=== PATIENT | female | born 1990 | race African-American/Black ===

== ENCOUNTER 2025-04-09 10:35 | Outpatient (REF) | payer MEDICAID, SELFPAY ==
--- OUTSIDE RECORDS SUMMARY | 2025-04-09 11:31 | XMS_ITS | Clinical Summary ---
Author Organization [employer] Address [address] [place] [address] Care Team Providers Care Features Editor Name Role Phone Emilia Hickman MD Primary Care Provider [phone] Allergies No known active allergies Medications levonorgestrel-e thinyl estradiol (Aviane, Alesse, Lessina) 0.1-20 MG-MCG tabletIndication s:Family planning Take 1 tablet by mouth Once per day. 90 tablet 3 03/28/2025 Active Hospital, Clinic, or Other Facility Administered Medication Ordered Dose Route Frequency Start Date End Date Status etonogestrel-eluting 68 mg contraceptive implant 1 eachIndications:Nexpl anon insertion 1 each [place] Once PRN Procedure 04/09/2025 04/09/2025 Ended Active Problems No known active problems Encounters Date Type Department Care Team Description 04/09/2025 9:30 AM EDT Procedure Visit [facility] [address] [place] [id number] Marcella Mahoney CNM Nexplanon insertion (Primary Dx); Screening examination for venereal disease 04/09/2025 Travel 04/05/2025 Telephone [facility] [address] [place] [phone] Emilia Hickman MD chartprep 03/28/2025 2:40 PM EDT Office Visit [facility] [address] [place] [phone] Emilia Hickman MD Encounter for medical examination to establish care (Primary Dx); Routine screening for STI (sexually transmitted infection); Family planning; Elevated blood sugar; Screening cholesterol level; Other fatigue; Dietary counseling; Exercise counseling 03/28/2025 Travel from Last 3 Months Family History Medical History Relation Name Comments Diabetes Neg Hx Hypertension Neg Hx Social History Tobacco Use Types Packs/Day Years Used Date Smoking Tobacco: Never Smokeless Tobacco: Never Tobacco Cessation:Counseling Given: Not Answered Alcohol Use Standard Drinks/Week Comments Never 0 (1 standard drink = 0.6 oz pur e alcohol) Depression Answer Date Recorded Patient Health Questionnaire-9 Score 0 04/09/2025 Patient Health Questionnaire-9 Score 0 04/09/2025 Last PHQ-9: Questionnaire Data Not on file 0 04/09/2025 Housing Stability Answer Date Recorded What is your housing situation today? I have phillip holder 04/09/[address] you li ve. Do you have problems with any of the following? Not on file 04/09/2025 Food Insecurity Answer Date Recorded Within the past 12 months, y ou worried that your food would run out before you got money to buy more: Never True 04/09/2025 Within the past 12 months,th e food you bought just didn't last and you didn't have enough money to get more: Never True 04/2025 Transportation Answer Date Recorded In the past 12 months, has l ack of transportation kept you from medical appts, meetings, work or from getting things needed for daily living? No 04/09/2025 Utilities Answer Date Recorded In the past 12 months, has t he electric, gas, oil or water company threatened to shut off services in your home? No 04/09/2025 Depression Answer Date Recorded Patient Health Questionnaire-2 Score 0 04/09/2025 Internet Access Answer Date Recorded Internet Access Q1 Yes 04/09/2025 Internet Access Q2 Not on file 04/09/2025 Comments Unknown Intention Date Recorded No desire to become (finding) 0 04/09/2025 Sex and Gender Information Value Date Recorded Sex Assigned at Female 03/28/2025 2:03 PM EDT Legal Sex Female 1:59 PM EDT Gender Identity Female 03/28/2025 2:03 PM EDT Sexual Orientation Straight 03/28/2025 2: 03 PM EDT Last Filed Vital Signs Vital Sign Reading Time Taken Comments Blood Pressure 100/62 04/09/2025 9:34 AM EDT Pulse 70 04/09/2025 9:34 AM EDT Temperature 36.4 C (97.5 F) 04/09/2025 9:34 AM EDT Respiratory Rate 18 04/09/2025 9:34 AM EDT Oxygen Saturation 98% 03/28/2025 2:33 PM EDT Inhaled Oxygen Concentration - - Weight 96.3 kg (212 lb 3.2 oz) 04/09/2025 9:34 A M EDT Height 168.8 cm (5' 6.44 ) 04/09/2025 9:34 AM ED T Body Mass Index 33.8 04/09/2025 9:34 AM EDT Plan of Treatment Upcoming Encounters Date Type Department Care Team (Late st Contact Info) Description 05/01/2025 3:30 PM EDT Procedure Visit [facility] MED[facility] [address] [place] [address], [place] [phone] Marcella Mahoney CNM [address] [place] [address] 05/02/2025 9:00 AM EDT Office Visit [facility] MED[facility]INE [address] [place], [place] [phone] Emilia Hickman MD [address] [place], [place] [phone] Health Maintenance Due Date Last Done Comments HIV Screening 1988 SDOH Screening 1988 HPV Vaccines (1 - 3-dose series) 2003 Hepatitis C Screening 2006 DTaP/Tdap/Td Vaccines (1 - Tdap) 2007 Hepatitis B Vaccines (1 of 3 - 19+ 3-dose series) 2007 Pap Smear 2009 Cervical Cancer Screening 2018 HPV/Cotest 2018 COVID-19 Vaccine (1 - 2023-2 5 season) 2024 Influenza Vaccine (#1) 2025 Alcohol/Substance Use Screening 04/09/2026 04/09/2025 Depression Screening 04/09/2026 04/09/2025, 04/09/2025 Disability Screening 04/09/2026 04/09/2025 Family Planning (PISQ) 04/09/2026 04/09/2025 Tobacco Screening 04/09/2026 04/09/2025 Zoster Vaccines (1 of 2) 2038 RSV Patients and Patients Aged 60 years or older (1 - 1-dose 75+ series) 2063 HIB Vaccines Aged Out No longer eligi ble based on patient's age to complete this topic Hepatitis A Vaccines Aged Out No long er eligible based on patient's age to complete this topic IPV Vaccines Aged Out No longer eligi ble based on patient's age to complete this topic Meningococcal B Vaccine Aged Out No l onger eligible based on patient's age to complete this topic Meningococcal Vaccine Aged Out No jaden leigha eligible based on patient's age to complete this topic Pneumococcal Vaccine: Pediatrics (0 to 5 Years) and At-Risk Patients (6 to 49) Years Aged Out No longer eligible b ased on patient's age to complete this topic RSV under 20 months Aged Out No longe r eligible based on patient's age to complete this topic Rotavirus Vaccines Aged Out No longer eligible based on patient's age to complete this topic Procedures Procedure Name Priority Date/Time Associated Diagnosis Comments OR INSERTION DRUG DELIVERY IMPLANT Routine 04/09/2025 9:50 AM EDT Nexplanon insertion POCT , URINE Routine 04/09/2025 9:43 AM EDT Nexplanon insertion from Last 3 Months Results * OR INSERTION DRUG DELIVERY IMPLANT (04/09/2025 9:50 AM EDT) Marcella Galeas CNM - 04/09/2025 9:50 AM EDT Marcella Mahoney CNM 04/09/2025 10:18 AM Insertion/Removal of Contraceptive Capsule Date/Time: 04/09/2025 9:50 AM Performed by: Marcella Mahoney CNM Authorized by: Marcella Mahoney CNM Confirmed correct patient, procedure, site, and patient consented: Yes Participating Staff: Marcella Mahoney Consent: Consent obtained: Verbal and written Consent given by: Patient Procedural risks and benefits discussed: Yes Patient questions answered: yes Patient agrees, verbalizes understanding, and wants to proceed: yes Educational handouts given: yes Instructions and paperwork completed: yes Indication: Indication: insertion of non-biodegradable drug delivery implant Pre-procedure: Pre-procedure timeout performed: yes Prepped with: povidone-iodine Local anesthetic: 2ml 2% lidocaine. Procedure: Procedure: Insertion Left/right: Left Preloaded contraceptive capsule trocar was placed subdermally: yes Visualization of implant was obtained: yes Contraceptive capsule was inserted and trocar removed: yes Visualization of notch in stylet and palpation of device: yes Palpation confirms placement by provider and patient: yes Site was closed with steri-strips and pressure bandage applied: yes OSM: 1 each etonogestrel-eluting 68 mg Marcella Mahoney CNM IN CLINIC/BEDSIDE ORDERAB LES Final Result * POCT Urine (04/09/2025 9:43 AM EDT) Preg Test, Ur Negative Negative, Indeterminate, None Detected, Invalid, Specimen unsatisfactory for evaluation, Weakly Positive, 2+ QC Media Lot # [id number] Lot# Expiration Date [id number] Urine 04/09/2025 9:43 AM EDT Marcella Mahoney CNM POINT OF CARE TEST ENTER/ EDIT ORDERABLES Final Result from Last 3 Months Insurance [facility] C3 Care Teams Features Editor Relationship Specialty Start Date End Date Howard, MD Emilia [address] [place] [phone] PCP - General Family Medicine 03/28/25
[2025-04-09 11:33] LABS: Hematocrit 38.6 % (37.0-47.0); Hemoglobin 12.1 g/dl (12.0-16.0); Imm Gran Abs Auto 0.01 X10*3/uL (0.00-0.03); Imm Gran Pct Auto 0.1 % (0.0-0.4); Lymphocytes Absolute Auto 2.2 X10*3/uL (1.2-4.9); MANUAL DIFF FLAG SCAN; Mean Corpuscular HGB Conc 31.3 g/dl (31.0-35.0); Mean Corpuscular Hemoglobin 23.7 pg (27.0-33.0); Mean Corpuscular Volume 75.5 fL (80.0-98.0); NRBC Abs Auto 0.000 X10*3/uL (0.0-0.012); NRBC Pct Auto 0.0 /100WBC (0.0-0.2); PLT CLUMP 1; Red Blood Count 5.11 X10*6/uL (4.20-5.50); SCAN SMEAR FLAG 1
[2025-04-09 11:36] LABS: Hemoglobin A1C 123.5462 umol/L; Total Hemoglobin (HGBA1C) 3180.6123 umol/L
[2025-04-09 11:38] LABS: White Blood Count 6.8 X10*3/uL (4.8-10.8)
[2025-04-09 11:51] LABS: Platelet Count 209 X10*3/uL (160-400)
[2025-04-09 12:53] LABS: CT PCR Urine NOT DETECTED (Not Detect.); NG PCR Urine NOT DETECTED (Not Detect.)
[2025-04-09 13:44] LABS: Alanine Aminotransferase 19 U/L (0-31); Albumin Level 4.4 g/dL (3.5-5.0); Alkaline Phosphatase 78 U/L (39-117); Anion Gap 12 (12-20); Aspartate Amino Transferase 21 U/L (5-31); Blood Urea Nitrogen 12 mg/dL (9-16); Calcium 10.0 mg/dL (8.4-10.2); Carbon Dioxide 25 mmol/L (22-29); Chloride 107 mmol/L (96-108); Cholesterol 202 mg/dL (<200); Estimated Glomerular Filt Rate > 60; HDL Cholesterol 43 mg/dL (>40); Potassium 4.4 mmol/L (3.3-5.1); Sodium 140 mmol/L (135-145); Total Protein 7.7 g/dL (6.5-8.0); Triglycerides 69 mg/dL (<150)
[2025-04-10 08:10] LABS: HIV Num 1 0.13 S/CO (0.00-0.99)
[2025-04-10 08:39] LABS: Syphilis Screen Nonreactive (Nonreactive)
[2025-04-10 08:43] LABS: HBS Num1 0.93 mIU/mL (0-7.99); HBc Num1 0.07 S/CO (0.00-0.79); HBsAGNum1 0.36 S/CO (0.00-0.99); Hepatitis B Surface Antigen Negative (Negative); ~HepC Num1 0.13 S/CO (0.00-0.79); ~Hepatitis B Surface Antibody NONREACTIVE (Nonreactive); ~Hepatitis C Antibody Nonreactive (Nonreactive)
== END 2025-04-09 10:36 | disposition home or self-care (01) ==
LOC: HO.HHCL 10:35
PROVIDERS: Advanced Practice Midwife; PCP Family Medicine; Visit Provider Family Medicine
DX: R53.83 Other fatigue (principal); R73.9 Hyperglycemia, unspecified; Z13.220 Encounter for screening for lipoid disorders; Z11.3 Encounter for screening for infections with a predominantly sexual mode of transmission
CPT/HCPCS: 36415; 80048; 80061; 80076; 83036; 84443; 85025; 86704; 86706; 86780; 86803; 87340; 87389; 87491; 87591

== ENCOUNTER 2025-05-01 18:24 | Outpatient (REF) | payer MEDICAID, SELFPAY | END 2025-05-01 18:25 | disposition home or self-care (01) | LOC: HO.HHCLNP 18:24 | PROVIDERS: Visit Provider Advanced Practice Midwife | DX: Z12.4 Encounter for screening for malignant neoplasm of cervix (principal); Z11.51 Encounter for screening for human papillomavirus (HPV) | CPT/HCPCS: 87626; 88175 ==

== ENCOUNTER 2025-06-22 11:31 | Outpatient (REF) | payer MEDICAID, SELFPAY ==
--- OUTSIDE RECORDS SUMMARY | 2025-06-22 12:07 | XMS_ITS | Clinical Summary ---
Author Organization [employer] Address [address] [place] [address] Care Team Providers Care Community Health Nurse Name Role Phone Emilia Hickman MD Primary Care Provider [phone] Allergies No known active allergies Medications levonorgestrel -ethinyl estradiol (Aviane, Alesse, Lessina) 0.1-20 MG-MCG tabletIndicati ons:Family planning Take 1 tablet by mouth Once per day. 90 tablet 3 025 2025 Active Cabotegravir ER 600 MG/3ML Suspension Extended ReleaseIndicat ions:Encounter for HIV pre-exposure prophylaxis 600mg IM Ventrogluteal monthly x 2 moths then every two months going forward 3 mL 025 Active Cabotegravir ER 600 MG/3ML Suspension Extended ReleaseIndicat ions:Encounter for HIV pre-exposure prophylaxis 600mg IM Ventrogluteal monthly x 2 moths then every two months going forward 3 mL 025 2024 Discontinued(R eorder (will not trigger notification to Pharmacy)) Cabotegravir ER 600 MG/3ML Suspension Extended ReleaseIndicat ions:Encounter for HIV pre-exposure prophylaxis 600mg IM Ventrogluteal monthly x 2 moths then every two months going forward 3 mL 025 2024 Discontinued(R eorder (will not trigger notification to Pharmacy)) Hospital, Clinic, or Other Facility Administered Medication Ordered Dose Route Frequency Start Date End Date Status Cabotegravir ER Suspension Extended Release 600 mgIndications:Encounter for HIV pre-exposure prophylaxis 600 mg IM Every 8 weeks 06/14/2025 Active Cabotegravir ER Suspension Extended Release 600 mgIndications:Encounter for HIV pre-exposure prophylaxis 600 mg IM Every 8 weeks 06/14/2025 Active Active Problems Problem Noted Date Diagnosed Date Other specified health status 06/14/2025 Overview (06/14/2025): -next comprehensive annual evaluation due after 06/13/26 -eye care facilitated by -dental home is -hank care proxy Assessment & Plan (06/15/2025 12:08 PM EDT): -next comprehensive annual evaluation due after 06/13/26 -eye care facilitated by -dental home is -hank care proxy Encounter for HIV pre-exposure prophylaxis 06/14 Assessment & Plan (06/15/2025 12:08 PM EDT): Dicussed PrEP at previous visit 03/2025. Pt understands risks and benefits. Agrees to Rx today. 06/13/25 Orders: Cabotegravir ER Suspension Extended Release 600 mg Cabotegravir ER Suspension Extended Release 600 mg Encounters Date Type Department Care Team Description 06/22/2025 Travel 06/21/2025 Travel 06/14/2025 Orders Only [facility] [address] [place] [address] Emilia Hickman MD Encounter for HIV pre-exposure prophylaxis 06/14/[address] [address] Emilia Hickman MD medication issue 06/13/2025 3:30 PM EDT Office Visit [address] [address] Emilia Hickman MD Encounter for HIV pre-exposure prophylaxis (Primary Dx); Class 1 obesity due to excess calories without serious comorbidity with body mass index (BMI) of 34.0 to 34.9 in adult; Dietary counseling; Exercise counseling; Encounter for immunization; Other specified health status 06/13/2025 Travel 06/12/[address] [address] Emilia Hickman MD chart prep 06/06/2025 Population Health Risk [facility] () Department [address] [place] [phone] Provider, Population Health Generic 06/05/2025 Patient Outreach [facility] [address] [place] [address] [place] [address] Emilia Hickman MD Pre-visit Planning (Pre-visit planning - LVM ) 05/23/2025 2:30 PM EDT Clinical Support [facility] [place] [address] Thuy Tipton, RN Encounter for immunization 05/23/2025 Travel 05/14/[address] [address] Valery Jett CNM Pap results 05/08/2025 Results Follow-Up [address] [place] [address] Vaelry Jett CNM Pap Smear 05/01/2025 3:30 PM EDT Procedure [address] [facility] [place] [address] Valery Jett CNM Cervical cancer screening (Primary Dx); Folliculitis 05/01/2025 Travel 04/30/2025 [address] [place] [address] Emilia Hickman MD Chart Prep 04/27/[address] [address] Emilia Hickman MD canceled appt 05/02/25 04/25/2025 Patient Outreach [address] [address] Emilia Hickman MD Pre-visit Planning (Pre-visit planning - unable to leave a message, voicemail is not set up. ) 04/20/2025 11:30 AM EDT Clinical Support [facility] [place] [address] Thuy Tipton, RN Encounter for immunization 04/20/2025 Travel 04/17/[address] [address] Emilia Hickman MD Call Back Request 04/16/[address] [address] Valery Jett CNM Results 04/10/2025 Results Follow-Up [facility] [address] [place] [phone] Valery Jett CNM Hepatitis B Surface Antibody, Qualitative 04/09/2025 9:30 AM EDT Procedure Visit [address] [address] Valery Jett CNM Nexplanon insertion (Primary Dx); Screening examination for venereal disease 04/09/2025 Orders Only [address] [address] Emilia Hickman MD 04/09/2025 Travel 04/05/[address] [address] Emilia Hickman MD chartprep 03/28/2025 2:40 PM EDT Office Visit [facility] [address] [place] [phone] Emilia Hickman MD Encounter for medical examination to establish care (Primary Dx); Routine screening for STI (sexually transmitted infection); Family planning; Elevated blood sugar; Screening cholesterol level; Other fatigue; Dietary counseling; Exercise counseling 03/28/2025 Travel from Last 3 Months Immunizations Immunization Administration Dates Next Due HepB-CpG 05/23/2025,04/20/2025 Family History Medical History Relation Name Comments [...] Recorded No desire to become (finding) 0 06/13/2025 Sex and Gender Information Value Date Recorded Sex Assigned at Female 03/28/2025 2:03 PM EDT Legal Sex Female 1:59 PM EDT Gender Identity Female 03/28/2025 2:03 PM EDT Sexual Orientation Straight 03/28/2025 2: 03 PM EDT Last Filed Vital Signs Vital Sign Reading Time Taken Comments Blood Pressure 126/74 06/13/2025 3:15 PM EDT Pulse 98 06/13/2025 3:15 PM EDT Temperature 35.8 C (96.5 F) 06/13/2025 3:15 PM EDT Respiratory Rate 20 06/13/2025 3:15 PM EDT Oxygen Saturation 98% 06/13/2025 3:15 PM EDT Inhaled Oxygen Concentration - - Weight 94 kg (207 lb 3.2 oz) 06/13/2025 3:15 PM EDT Height 165.1 cm (5' 5 ) 06/13/2025 3:15 PM EDT Body Mass Index 34.48 06/13/2025 3:15 PM EDT Plan of Treatment Upcoming Encounters Date Type Department Care Team (Late st Contact Info) Description 07/20/2025 2:00 PM EDT Clinical Support [facility] [address] [place] [address] Palak Roche, YANNI [address] [place] [address] Health Maintenance Due Date Last Done Comments SDOH Screening 1990 HPV Vaccines (1 - 3-dose series) 2003 DTaP/Tdap/Td Vaccines (1 - Tdap) 2007 COVID-19 Vaccine (1 - 2023-2 5 season) 2025 Influenza Vaccine (#1) 2025 Alcohol/Substance Use Screening 04/09/2026 04/09/2025 Depression Screening 04/09/2026 04/09/2025, 04/09/2025 Diabetes: Hemoglobin A1C 04/09/2026 04/09/2025 Disability Screening 04/09/2026 04/09/2025 Family Planning (PISQ) 06/14/2026 06/14/2025 Tobacco Screening 06/15/2026 06/15/2025 Lipid Panel 04/09/2030 04/09/2025 Cervical Cancer Screening 05/01/2030 HPV/Cotest 05/01/2030 05/01/2025 Pap Smear 05/01/2030 05/01/2025 Zoster Vaccines (1 of 2) 2038 RSV Patients and Patients Aged 60 years or older (1 - 1-dose 75+ series) 2063 HIV Screening Completed 04/09/2025 Hepatitis C Screening Completed 04/09/2025 Hepatitis B Vaccines Completed 05/23/2025, 04/20/2025 HIB Vaccines Aged Out No longer eligi [...] Procedure Name Priority Date/Time Associated Diagnosis Comments PAP SMEAR Routine 05/01/2025 3:45 PM EDT Cervical cancer screening HPV DNA, LOW/HIGH RISK Routine 05/01/2025 3:45 PM EDT POCT , URINE Routine 05/01/2025 3:44 PM EDT Cervical cancer screening SLIDE REVIEW Routine 04/09/2025 10:46 AM EDT HEPATITIS B CORE AB TOTAL Routine 04/09/2025 10:46 AM EDT Screening examination for venereal disease HEPATITIS C AB W/REFL TO HCV RNA, QN, PCR Routine 04/09/2025 10:46 AM EDT Screening examination for venereal disease HEPATITIS B SURFACE ANTIGEN, EIA Routine 04/09/2025 10:46 AM EDT Screening examination for venereal disease HEPATITIS B SURFACE ANTIBODY, QUALITATIVE Routine 04/09/2025 10:46 AM EDT Screening examination for venereal disease CHLAMYDIA/TRICHOMONAS /NEISSERIA GONORRHOEAE, PCR, URINE Routine 04/09/2025 10:46 AM EDT Screening examination for venereal disease SYPHILIS SCREEN Routine 04/09/2025 10:46 AM EDT Routine screening for STI (sexually transmitted infection) HIV 1/2 ANTIGEN/ANTIBODY, FOURTH GENERATION W/RFL Routine 04/09/2025 10:46 AM EDT Routine screening for STI (sexually transmitted infection) CBC WITH AUTO DIFFERENTIAL Routine 04/09/2025 10:46 AM EDT Other fatigue TSH W/REFLEX TO FT4 Routine 04/09/2025 1 0:46 AM EDT Other fatigue BASIC METABOLIC PANEL Routine 04/09/2025 10:46 AM EDT Screening cholesterol level LIPID PANEL, STANDARD Routine 04/09/2025 10:46 AM EDT Screening cholesterol level HEPATIC FUNCTION PANEL Routine 04/09/2025 10:46 AM EDT Screening cholesterol level HEMOGLOBIN A1C Routine 04/09/2025 10:46 AM EDT Elevated blood sugar [place] INSERTION DRUG DELIVERY IMPLANT Routine 04/09/2025 9:50 AM EDT Nexplanon insertion POCT , URINE Routine 04/09/2025 9:43 AM EDT Nexplanon insertion from Last 3 Months Results * HPV DNA, Low/High Risk (05/01/2025 3:45 PM EDT) Pathologist [facility] HPV High Risk Negative Negative [facility] HPV Genotype 16 Negative Negative [facility] HPV Genotype 18 Negative Negative [facility] Comment:HPV testing performe d at [facility] (CLIA#[id number]), [address] [place] [address].Testing for HPV was performed using the Siri VIKTOR 6800system. The presence of HPV in the female genital tract isassociated with a number of diseases, including cervicalcarcinoma. The HPV DNA high risk pool tests for HPV 31, 33,35, 39, 45, 51, 52, 56, 58, 59, 66 and 68. The testing forHPV 16 and 18 genotypes has also been performed. A positiveresult indicates detection of nucleic acid sequences fromone or more subtypes, whereas a negative result indicatessuch sequences were not detected. 05/01/2025 3:45 PM EDT 05/02/2025 7:35 AM EDT us Valery COX LAB BLOOD ORDERABLES Helga shanon Result [facility] [address] [place] [phone] * Pap Smear (05/01/2025 3:45 PM EDT) Swab Cervix uteri structure / Unknown 05/01/2025 3:45 PM EDT 05/02/2025 7:35 AM EDT [facility] - 05/08/2025 12:47 PM EDT ----- ------- Name: Ariana Guajardo Age/Sex: 34/F : 1990 Unit#: [id number] Attend Dr: VALERY JETT CNM Re05/01/25 Status: [facility] REF Location: HO.HHCLNP Disch: ----- ------- SPEC : [id number] RECD: 05/02/25 STATUS: FAISAL XIE NUM: [id number] LENIN: 05/01/25-1545 [facility] DR: VALERY JETT CNM ENTERED: 05/02/25 SP TYPE: Pap [facility] OT DR: ORDERED: Pap Smear Interpretation Satisfactory for evaluation. Negative for intraepithelial lesion or malignancy. HPV High Risk: Negative HPV Genotyping 16: Negative HPV Genotyping 18: Negative Clinical Information LMP: Unknown date Previous PAP test: Unknown date/findings Other history: Implantable control, cervical cancer screening Material Received ThinPrep-Cervical PAP Disclaimer As of July 26, 2024, the technical services to include automated prescreening performed by the ThinPrep Imaging System, PAP screening and HPV testing will be performed at [facility] (CLIA #[id number]), [address] [place] [id number]. Testing for HPV was performed using the Fund [employer] 6800 system. The presence of HPV in the female genital tract is associated with a number of diseases, including cervical carcinoma. The HPV DNA high risk pool tests for HPV 31, 33, 35, 39, 45, 51, 52, 56, 58, 59, 66 and 68. The testing for HPV 16 and 18 genotypes has also been performed. A positive result indicates detection of nucleic acid sequences from one or more subtypes, whereas a negative result indicates such sequences were not detected. All professional services are performed by [facility] ([address] [place] [address], [place] [id number]; ; CLIA #[id number]). The PAP Test is a screening procedure with the inherent possibility of both false negative and false positive results. Results should be interpreted in the context of historic and current clinical findings. Reliability of the PAP Test is enhanced by performing the test on a regular repetitive basis. ----- ------- Signed (signature on file) RODRIGO Rm (ASCP) 05/08/25 1247 ----- ------- END OF REPORT us Valery Jett [facility] CYTOLOGY ORDERABLES F inal Result [facility] [address] [place] [address] [phone] * POCT , urine manually resulted (05/01/2025 3:44 PM EDT) Only the most recent of2 resultswithin the time period is included. Preg Test, Ur Negative Negative, Indeterminate, None Detected, Invalid, Specimen unsatisfactory for evaluation, Weakly Positive, 2+ QC Media Lot # [id number] Lot# Expiration Date [id number] Urine 05/01/2025 3:44 PM EDT Valery Jett [facility] POINT OF CARE TEST ENTER/ EDIT ORDERABLES Final Result * Chlamydia/N. Gonorrhoeae, PCR, Urine (04/09/2025 10:46 AM EDT) CT PCR, Urine NOT DETECTED Not Detect. [facility] Comment:A not detected test result does not exclude the possibilityof infection because test results can be affected byimproper specimen collection, concurrent antibiotic therapy,or the number of organisms in the specimen which may bebelow the sensitivity of the test. As with many diagnostictests, results from the Xpert CT/NG assay should beinterpreted in conjunction with other laboratory andclinical data available to the clinician.The Xpert CT/NG assay should not be used for the evaluationof suspected sexual abuse or for other medico-legalindications. Additional testing is recommended in anycircumstance when false positive or false negative resultscould lead to adverse medical, social or psychologicalconsequences. NG PCR, Urine NOT DETECTED Not Detect. [facility] Comment:A not detected test result does not exclude the possibilityof infection because test results can be affected byimproper specimen collection, concurrent antibiotic therapy,or the number of organisms in the specimen which may bebelow the sensitivity of the test. As with many diagnostictests, results from the Xpert CT/NG assay should beinterpreted in conjunction with other laboratory andclinical data available to the clinician.The Xpert CT/NG assay should not be used for the evaluationof suspected sexual abuse or for other medico-legalindications. Additional testing is recommended in anycircumstance when false positive or false negative resultscould lead to adverse medical, social or psychologicalconsequences. Urine (Urine, Random) 04/09/2025 10:46 AM EDT 04/09/2025 11:20 AM EDT Valery COX LAB URINE ORDERABLES Helga l Result Performing Organization Address [facility] Co de Phone Number [facility] [address] [place] [phone] * Syphilis Screen (04/09/2025 10:46 AM EDT) Syphilis Screen Nonreactive Nonreactive [facility] Blood Venous blood specimen / Unknown 04/09/2025 10:46 AM EDT 04/09/2025 11:25 AM EDT us Emilia Hickman MD LAB BLOOD ORDERABLES Final Result Performing Organization Address [facility] Co de Phone Number [facility] [address] [place] [phone] * Slide Review (04/09/2025 10:46 AM EDT) Slide Review VERIFIED [facility] 04/09/2025 10:4 6 AM EDT 04/09/2025 11:20 AM EDT Emilia Hickman MD LAB BLOOD ORDERABLES Final Result Performing Organization Address [facility] Co de Phone Number [facility] [address] [place] [phone] * TSH with Reflex to Free T4 (04/09/2025 10:46 AM EDT) TSH reflex Free T4 1.56 0.32 - 4.0 uIU/mL [facility] Blood 04/09/2025 10:4 6 AM EDT 04/09/2025 11:25 AM EDT Emilia Hickman MD LAB BLOOD ORDERABLES Final Result [facility] [address] [place] [phone] * (ABNORMAL) CBC auto differential (04/09/2025 10:46 AM EDT) White Blood Count 6.8 4.8 - 10.8 X10*3/uL [facility] Red Blood Count 5.11 4.20 - 5.50 X10*6/uL [facility] Hemoglobin 12.1 12.0 - 16.0 g/dl [facility] Hematocrit 38.6 37.0 - 47.0 % [facility] Mean Corpuscular Volume 75.5(L) 80.0 - 98.0 fL [facility] Mean Corpuscular Hemoglobin 23.7(L) 27.0 - 33.0 pg [facility] Mean Corpuscular HGB Conc 31.3 31.0 - 35.0 g/dl [facility] Red Cell Distribution Width 15.1 11.0 - 16.0 % [facility] Platelet Count 209 160 - 400 X10*3/uL [facility] Mean Platelet Volume 12.3 9.4 - 12.3 fL [facility] Neutrophils Percent Auto 58.7 45 - 73 % [facility] Imm Gran Pct Auto 0.1 0.0 - 0.4 % [facility] Lymphocytes Percent Auto 33.1 20 - 40 % [facility] Monocytes Percent Auto 6.5 2 - 11 % [facility] Eosinophils Percent Auto 1.0 0 - 4 % [facility] Basophils Percent Auto 0.6 0 - 2 % [facility] NRBC Pct Auto 0.0 0.0 - 0.2 /100WBC [facility] Neutrophils Absolute Auto 4.0 2.0 - 8.3 x10*3/uL [facility] Imm Gran Abs Auto 0.01 0.00 - 0.03 X10*3/uL [facility] Lymphocytes Absolute Auto 2.2 1.2 - 4.9 X10*3/uL [facility] Monocytes Absolute Auto 0.4 0.1 - 1.2 X10*3/uL [facility] Eosinophils Absolute Auto 0.1 0.0 - 0.4 X10*3/uL [facility] Basophils Absolute Auto 0.0 0.0 - 0.2 X10*3/uL [facility] NRBC Abs Auto 0.000 0.0 - 0.012 X10*3/uL [facility] Blood Venous blood specimen / Unknown 04/09/2025 10:46 AM EDT 04/09/2025 11:20 AM EDT Emilia Hickman MD LAB BLOOD ORDERABLES Edite d Result - Final Performing Organization Address [facility] Co de Phone Number [facility] [address] [place] [phone] * Hepatitis C Antibody with Reflex to HCV, RNA, Quantitative, Real-Time PCR (04/09/2025 10:46 AM EDT) Pathologist [facility] Hepatitis C Antibody Nonreactive Nonreactive [facility] Comment:Antibodies to HCV no t detected; does not exclude early acuteHCV infection. Blood Venous blood specimen / Unknown 04/09/2025 10:46 AM EDT 04/09/2025 11:20 AM EDT us Valery Jett CNM LAB BLOOD ORDERABLES Helga l Result Performing Organization Address [facility] Co de Phone Number [facility] [address] [place] [phone] * Hepatitis B surface antigen, EIA (04/09/2025 10:46 AM EDT) Pathologist [facility] Hepatitis B Surface Ag Negative Negative [facility] Blood Venous blood specimen / Unknown 04/09/2025 10:46 AM EDT 04/09/2025 11:20 AM EDT [facility] BLOOD ORDERABLES Helga l Result Performing Organization Address City/[facility]/ZIP Co de Phone Number [facility] [address] [place] [phone] * Hepatitis B Core Antibody, Total (04/09/2025 10:46 AM EDT) Hepatitis B Core Antibody Nonreactive Nonreactive [facility] Blood Venous blood specimen / Unknown 04/09/2025 10:46 AM EDT 04/09/2025 11:20 AM EDT [facility] LAB BLOOD ORDERABLES Helga l Result Performing Organization Address City/[facility] Co de Phone Number [facility] [address] [place] [phone] * HIV-1/2 Antigen and Antibodies, Fourth Generation, with Reflexes (04/09/2025 10:46 AM EDT) Pathologist [facility] HIV AB/AG Nonreactive Nonreactive [facility] Comment:HIV-1 p24 Ag and/or HIV-1/HIV-2 Ab not detected.A test result that is nonreactive does not exclude thepossibility of exposure to or infection with HIV-1 and/orHIV-2. Nonreactive results in this assay for individualswith prior exposure to HIV-1 and/or HIV-2 may be due toantigen and antibody levels that are below the limit ofdetection of this assay.The [employer] A HIV Ag/Ab Combo assay result andsupplemental assay results should be interpreted inconjunction with the patient's clinical presentation,history and other laboratory results. If the results areinconsistent with clinical evidence, additional testing issuggested to confirm the result. Blood Venous blood specimen / Unknown 04/09/2025 10:46 AM EDT 04/09/2025 11:20 AM EDT Result [facility] Emilia Hickman MD LAB BLOOD ORDERABLES Final Result Performing Organization Address [facility] Co de Phone Number [facility] [address] [place] [phone] * Hepatitis B Surface Antibody, Qualitative (04/09/2025 10:46 AM EDT) ~Hepatitis B Surface Antibody NONREACTIVE Nonreactive [facility] Comment:Nonreactive: < 8.00 mIU/mL Blood Venous blood specimen / Unknown 04/09/2025 10:46 AM EDT 04/09/2025 11:20 AM EDT Result [facility] Valery COX LAB BLOOD ORDERABLES Helga l Result Performing Organization Address [facility] Co de Phone Number [facility] [address] [place] [phone] * Hemoglobin A1c (04/09/2025 10:46 AM EDT) Pathologist [facility] Hemoglobin A1c 5.7 <6.0 % [facility] Comment:Hemoglobin A1C Refer ence Range Adults: 4.8 - 6.0 % Non diabetic: < 6.0 % Goal: < 7.0 %Additional Action Suggested: > 8.0 %Note: Hemoglobin A1c results are invalid for patients with abnormal amounts of HbF. Blood transfusions may impact the HbA1c concentration in the patient sample. Estimated Average Glucose 117 mg/dL [facility] Comment:eAG = Estimated ave rage glucose which is %A1C expressed asaverage glucose, using the formula of the I6A-YuvupbtRwoknrp Glucose study (ADAG), Diabetes Care, Vol.31,#8,May. 2007 Blood Venous blood specimen / Unknown 04/09/2025 10:46 AM EDT 04/09/2025 11:20 AM EDT Result [facility] Emilia Hickman MD LAB BLOOD ORDERABLES Final Result Performing Organization Address City/[facility]/ZIP Co de Phone Number [facility] [address] [place] [phone] * Hepatic Function Panel (04/09/2025 10:46 AM EDT) Bilirubin, Total 0.4 0.0 - 1.0 mg/dL [facility] Bilirubin, Direct 0.2 0.0 - 0.5 mg/dL [facility] Aspartate Amino Transferase 21 5 - 31 U/L [facility] Alanine Aminotransferase 19 0 - 31 U/L [facility] Total Protein 7.7 6.5 - 8.0 g/dL [facility] Albumin Level 4.4 3.5 - 5.0 g/dL [facility] Alkaline Phosphatase 78 39 - 117 U/L [facility] Blood Venous blood specimen / Unknown 04/09/2025 10:46 AM EDT 04/09/2025 11:25 AM EDT Emilia Hickman MD LAB BLOOD ORDERABLES Final Result Performing Organization Address City/[facility] Co de Phone Number [facility] [address] [place] [phone] * (ABNORMAL) Lipid Panel, Standard (04/09/2025 10:46 AM EDT) Triglycerides 69 <150 mg/dL [facility] Comment:Desirable Triglyceri de: less than 150 mg/dLBorderline High Triglyceride 150-199 mg/dLHigh Triglyceride: 200-499 mg/dLVery High Triglyceride: greater than or equal to 5OO mg/dL Cholesterol 202(H) <200 mg/dL [facility] Comment:Desirable Cholestero l: less than 200 mg/dLBorderline High Cholesterol: 200-239 mg/dLHigh Cholesterol: greater than 239 mg/dL LDL Cholesterol Calculated 146(H) <100 mg/dL [facility] Comment:Desirable LDL: less than 100 mg/dLNear Optimal/Above Optimal LDL: 110- 129 mg/dLBorderline High LDL: 130-159 mg/dLHigh LDL: 160-189 mg/dLVery High LDL: greater than or equal to 190 mg/dL HDL Cholesterol 43 >40 mg/dL [facility] Comment:Desirable HDL: great er than 40 mg/dL Note: This HDL assay may give artificially low results in patients with liver disease. Blood Venous blood specimen / Unknown 04/09/2025 10:46 AM EDT 04/09/2025 11:25 AM EDT Emilia Hickman MD LAB BLOOD ORDERABLES Final Result Performing Organization Address City/[facility]/ZIP Co de Phone Number [facility] [address] [place] [address] [phone] * Basic Metabolic Panel (04/09/2025 10:46 AM EDT) Sodium 140 135 - 145 mmol/L [facility] Potassium 4.4 3.3 - 5.1 mmol/L [facility] Chloride 107 96 - 108 mmol/L [facility] Carbon Dioxide 25 22 - 29 mmol/L [facility] Anion Gap 12 12 - 20 [facility] Urea Nitrogen (BUN) 12 9 - 16 mg/dL [facility] Creatinine, Serum 0.81 0.5 - 1.4 mg/dL [facility] Estimated Glomerular Filt Rate >60 [facility] Comment:Chronic Kidney Disea se: Estimated GFR < 60 mL/min/[id number] Kidney Disease: Estimated GFR < 15 mL/min/1.73m2 Glucose 89 60 - 115 mg/dL [facility] Calcium 10.0 8.4 - 10.2 mg/dL [facility] Blood Venous blood specimen / Unknown 04/09/2025 10:46 AM EDT 04/09/2025 11:25 AM EDT Emilia Hickman MD LAB BLOOD ORDERABLES Final Result [facility] [address] [place] [phone] * [place] INSERTION DRUG DELIVERY IMPLANT (04/09/2025 9:50 AM EDT) Valery Galeas CNM - 04/09/2025 9:50 AM EDT Valery Jett CNM 04/09/2025 10:18 AM Insertion/Removal of Contraceptive Capsule Date/Time: 04/09/2025 9:50 AM Performed by: Valery Jett CNM Authorized by: Valery Jett CNM Confirmed correct patient, procedure, site, and patient consented: Yes Participating Staff: Valery Jett Consent: Consent obtained: Verbal and written Consent [...] yes OSM: 1 each etonogestrel-eluting 68 mg us Valery Jett CNM IN CLINIC/BEDSIDE ORDERAB LES Final Result from Last 3 Months Insurance [facility] C3 Care Teams Community Health Nurse Relationship Specialty Start Date End Date Emilia Hickman MD [address] [place] [address] PCP - General Family Medicine 03/28/25
--- OUTSIDE RECORDS SUMMARY | 2025-06-22 12:07 | XMS_ITS | Encounter Summary ---
Author Organization [facility] Address [address] [place] [address] Care Team Providers Care Science Job Titles Name Role Phone Emilia Hickman MD Primary Care Provider +1- [phone] Encounter Details Date Type Department Care Team (Latest Contact Info) Description 06/22/2025 Travel Social History Tobacco Use Types Packs/Day Years Used Date Smoking Tobacco: Never Smokeless Tobacco: Never Alcohol Use Standard Drinks/Week Comments Never 0 [...] Q2 Not on file 04/09/2025 Comments Unknown Sex and Gender Information Value Date Recorded Sex Assigned at Female 03/28/2025 2:03 PM EDT Legal Sex Female 1:59 PM EDT Gender Identity Female 03/28/2025 2:03 PM EDT Sexual Orientation Straight 03/28/2025 2: 03 PM EDT documented as of this encounter Plan of Treatment Upcoming Encounters Date Type Department Care Team (Late st Contact Info) Description 07/20/2025 2:00 PM EDT Clinical Support [facility] [address] [place] [address] Palak Roche, RN [address] [place] [address] documented as of this encounter Visit Diagnoses Not on filedocumented in this encounter Additional Health Concerns Assessment Noted Time PHQ-9 Depression Total Score: 0 04/09/20 9:39 AM EDT documented as of this encounter Care Teams Science Job Titles Relationship Specialty Start Date End Date Emilia Hickman MD [address] [place] [address] PCP - General Family Medicine 03/28/25 documented as of this encounter
--- OUTSIDE RECORDS SUMMARY | 2025-06-22 12:07 | XMS_ITS | Encounter Summary ---
Author Organization [employer] Address [address] [facility] [address] [place] [address] Care Team Providers Care Business Process Lead Name Role Phone Emilia Hickman MD Primary Care Provider +1- [phone] Encounter Details Date Type Department Care Team (Latest Contact Info) Description 06/21/2025 Travel Social History Tobacco Use Types Packs/Day [...] Description 07/20/2025 2:00 PM EDT Clinical Support [facility] [address] [place] [address] Palak Roche, RN [address] [place] [address] documented as of this encounter Visit Diagnoses Not on filedocumented in this encounter Additional Health Concerns Assessment Noted Time PHQ-9 Depression Total Score: 0 04/09/20 9:39 AM EDT documented as of this encounter Care Teams Business Process Lead Relationship Specialty Start Date End Date Emilia Hickman MD [address] [place] [address] PCP - General Family Medicine 03/28/25 documented as of this encounter
--- OUTSIDE RECORDS SUMMARY | 2025-06-22 12:07 | XMS_ITS | Encounter Summary ---
Author Organization [employer] Address [address] [place] [address] Care Team Providers Care Pharmacogeneticist Name Role Phone Emilia Hickman MD Primary Care Provider +1- [phone] Encounter Details Date Type Department Care Team (Late st Contact Info) Description 05/08/2025 Results Follow-Up [facility] [address] [place], [place] [phone] Marcella Mahoney CNM [address] [place] [address] Pap Smear Social History Tobacco Use Types Packs/Day Years [...] Description 07/20/2025 2:00 PM EDT Clinical Support [facility] [address] [place] [address] Palak Roche, RN [address] [place] [address] documented as of this encounter Visit Diagnoses Not on filedocumented in this encounter Additional Health Concerns Assessment Noted Time PHQ-9 Depression Total Score: 0 04/09/20 9:39 AM EDT documented as of this encounter Care Teams Pharmacogeneticist Relationship Specialty Start Date End Date Emilia Hickman MD [address] [place] [address] PCP - General Family Medicine 03/28/25 documented as of this encounter
[2025-06-25 13:09] LABS: HIV RNA PCR Qn Copies NOT DETECTED copies/mL (NOT DETECTED); HIV RNA PCR Qn Log Copies NOT DETECTED (NOT DETECTED)
== END 2025-06-22 11:32 | disposition home or self-care (01) ==
LOC: HO.HHCL 11:31
PROVIDERS: PCP Family Medicine; Visit Provider Family Medicine
DX: Z11.4 Encounter for screening for human immunodeficiency virus [HIV] (principal); Z79.899 Other long term (current) drug therapy
CPT/HCPCS: 36415; 87536

== ENCOUNTER 2025-07-20 14:22 | Outpatient (REF) | payer MEDICAID, SELFPAY ==
--- OUTSIDE RECORDS SUMMARY | 2025-07-20 14:00 | XMS_ITS | Encounter Summary ---
Author Organization [employer] Address [address] [facility] [address] [place] [address] Care Team Providers Care Mathematical Engineering Technician Name Role Phone Emilia Hickman MD Primary Care Provider +1- [phone] Reason for Visit * Reason Comments Injectable PrEP Encounter Details Date Type Department Care Team (Latest Contact Info) Description 07/20/2025 2:00 PM EDT Clinical Support [facility] [address] [place], [place] [phone] Jaime Zamorano, YANNI [address] [place] [address] On pre-exposure prophylaxis for HIV (Primary Dx) Social History Tobacco Use Types Packs/Day Years [...] PM EDT documented as of this encounter Progress Notes * Jaime Zamorano RN - 07/20/2025 2:00 PM EDT Pt here for second injection of APRETUDE (600-mg cabotegravir). Reviewed and confirmed: Negative 4th generation HIV-1 test within last 7 days. HIV-1 RNA assay test (HIV VL) negative or pending at time of visit. No previous hypersensitivity reaction to cabotegravir. Reviewed medication list; pt is not taking carbamazepine, oxcarbazepine, phenobarbital, phenytoin, rifampin, or rifapentine. Pt weighs over 77 lbs. Pt does not have gluteal implants. Pt is not (or has consulted with a provider). Pt does not have any symptoms of acute HIV (fever, fatigue, myalgia, sore throat, rash). LFTs done within last 6 months, or included in initial labs today. Last LFTs: 04/09/25 Hep B status (if stopping Descovy or Truvada): nonreactive surface ab, surface ag, core ab 04/09/25. Received two Heplisav-B vaccines April and May 2025. test [if applicable]: negative today, has nexplanon, inserted 04/09/25 Patient questions answered. Reviewed importance of attending lab and injection appointments. Reviewed that medication is an IM injection in gluteal muscle and cannot be taken out once it is given. 600 mg cabotegravir injected IM into L gluteal muscle with 2 inch needle due to BMI >30. Pt advised to not rub the injection sites. Pt tolerated well, advised to remain 20 mins after injection, noadverse reaction noted. Pt given phone number for RN and PrEP navigator if they have any questions. Teaching points reviewed: Importance of adherence to injection and lab monitoring schedule: once monthly for 2 mos, then every 2 mos afterward. Importance of contacting provider/RN for sooner HIV testing: When recent exposures to HIV-1 are suspected or clinical symptoms consistent with acute HIV-1 (eg, fever, fatigue, myalgia, sore throat, rash) are present Upon diagnosis of any other STI Reviewed long ???tail?? effect of medication. Apretude (IM cabotegravir) can be present in the body for up to 12 months after an injection, though not at a level to protect from HIV acquisition. There is a risk that if someone did acquire HIV-1 before, during, or within 12 mos of discontinuation of Apretude, that strain of HIV-1 could be resistant if they are not current on dosing or are not on a different form of PrEP, such as Truvada or Descovy. Counseled on site reaction and side effects (abdominal pain, jaundice, rash, depression etc.) that should be brought to provider attention. PrEP does not protect against STIs other than HIV, or other blood-borne pathogens. If you plan to miss a dose by more than 7 days, let us know as soon as possible so we can plan for this. You can take oral cabotegravir for up to 2 months to cover for 1 missed injection. If you rosalie dose by accident, contact us as soon as you can so we can make a plan to re-start PrEP - if desired and appropriate. Plan: PrEP Navigator check - in 1 week Return for HIV, [if applicable] testing in 1 month or 2 months. Ideally this would be less than 7 days from your next injection appointment. It can be done the same day as injection provided 4th gen rapid HIV-1 test is non- reactive before injection and HIV-1 RNA assay has been drawn at lab. Thorough STI testing every other visit (every 4 mos) or sooner if needed in addition to HIV testing. Done today 07/20/25, next due 11/20/25. LFTs 6 months after first injection, then annually: due 12/20/24. Appointment for 3rd month of injections (now every 2 mos thereafter w/ 7d hossein period): 09/12/25 11 am documented in this encounter Plan of Treatment Upcoming Encounters Date Type Department Care Team (Late st Contact Info) Description 09/12/2025 11:00 AM EST Clinical Support [facility] [address] [place] [address] Palak Roche RN [address] [place] [address] Scheduled Orders Name Type Priority Associated Diagnoses Orde r Schedule HIV-1 RNA, Quantitative, Real-Time PCR Lab Routine On pre-exposure prophylaxis for HIV Expected: 07/20/2025 (Approximate), Expires: 07/20/2026 Syphilis Screen Lab Routine On pre-exposure prophylaxis for HIV Expected: 07/20/2025 (Approximate), Expires: 07/20/2026 documented as of this encounter Procedures Procedure Name Priority Date/Time Associated Diagnosis Comments POCT , URINE Routine 07/20/2025 2:40 PM EDT On pre-exposure prophylaxis for HIV POCT RAPID HIV SCREENING Routine 07/20/2025 2:39 PM EDT On pre-exposure prophylaxis for HIV documented in this encounter Results * POCT Urine (07/20/2025 2:40 PM EDT) Preg Test, Ur Negative Negative, Indeterminate, None Detected, Invalid, Specimen unsatisfactory for evaluation, Weakly Positive, 2+ Urine 07/20/2025 2:40 PM EDT us Yaron Farrell MD POINT OF CARE TEST ENTER/EDIT OR DERABLES Final Result * POCT Rapid HIV Screening (07/20/2025 2:39 PM EDT) Blood 07/20/2025 2:39 PM EDT Narrative Jaime Zamorano RN - 07/20/2025 2:39 PM EDT HIV ag/ab = negative us Yaron Farrell MD POINT OF CARE TEST ENTER/EDIT OR DERABLES Final Result documented in this encounter Visit Diagnoses Diagnosis On pre-exposure prophylaxis for HIV- Primary documented in this encounter Administered Medications Inactive Administered Medications - up to 3 most recent administrations Medication Order MAR Action Action Date Dose Rate Site Cabotegravir ER Suspension Extended Release 600 mg 600 mg, Intramuscular, Once, On Wed07/20/25 at 1445, For 1 dose, Ventrogluteal.Indication s:On pre-exposure prophylaxis for HIV Given 07/20/2025 2:45 PM EDT 600 mg Left Upper Buttock documented in this encounter Additional Health Concerns Assessment Noted Time PHQ-9 Depression Total Score: 0 04/09/20 9:39 AM EDT documented as of this encounter Care Teams Mathematical Engineering Technician Relationship Specialty Start Date End Date Emilia Hickman MD [address] [place] [address] PCP - General Family Medicine 03/28/25 documented as of this encounter
--- OUTSIDE RECORDS SUMMARY | 2025-07-20 16:55 | XMS_ITS | Clinical Summary ---
Author Organization [facility] Address [address] [facility] 7[address] [place] [address] Care Team Providers Care Facsimile Machine Operator Name Role Phone Emilia Hickman MD Primary Care Provider +1- [phone] Allergies No known active allergies Medications levonorgestrel- ethinyl estradiol (Aviane, Alesse, Lessina) 0.1-20 MG-MCG tabletIndicatio ns:Family planning Take 1 tablet by mouth Once per day. 90 tablet 3 5 026 Active Cabotegravir ER 600 MG/3ML Suspension Extended ReleaseIndicati ons:Encounter for HIV pre-exposure prophylaxis 600mg IM Ventrogluteal monthly x 2 moths then every two months going forward 3 mL 11 Active Hospital, Clinic, or Other Facility Administered Medication Ordered Dose Route Frequency Start Date End Date Status Cabotegravir ER Suspension Extended Release 600 mgIndications:Enco unter for HIV pre-exposure prophylaxis 600 mg IM Every 8 weeks 06/14/2025 07/20/2025 Discontinu ed Cabotegravir ER Suspension Extended Release 600 mgIndications:Enco unter for HIV pre-exposure prophylaxis 600 mg IM Every 8 weeks 06/14/2025 07/20/2025 Discontinu ed Cabotegravir ER Suspension Extended Release 600 mgIndications:Enco unter for HIV pre-exposure prophylaxis 600 mg IM Once 06/22/2025 06/22/2025 Ended Cabotegravir ER Suspension Extended Release 600 mgIndications:On pre-exposure prophylaxis for HIV 600 mg IM Once 07/20/2025 07/20/2025 Ended Active Problems Problem Noted Date Diagnosed Date [...] Encounters Date Type Department Care Team Description 07/20/2025 2:00 PM EDT Clinical Support [address] [address] Jaime Zamorano, RN On pre-exposure prophylaxis for HIV (Primary Dx) 07/20/[address] [address] Emilia Hickman MD Referral 07/20/2025 Travel 06/22/2025 11:00 AM EDT Clinical Support [address] [address] Palak Roche, YANNI Encounter for HIV pre-exposure prophylaxis (Primary Dx) 06/22/2025 Orders Only [address] [address] Emilia Hickman MD 06/22/2025 Travel 06/21/2025 Travel 06/14/2025 Orders Only [facility] [address] [place] [phone] Emilia Hickman MD Encounter for HIV pre-exposure prophylaxis 06/14/[address] [address] Emilia Hickman MD medication issue 06/13/2025 3:30 PM EDT Office Visit [address] [address] Emilia Hickman MD Encounter for HIV pre-exposure prophylaxis (Primary Dx); Class 1 obesity due to excess calories without serious comorbidity with body mass index (BMI) of 34.0 to 34.9 in adult; Dietary counseling; Exercise counseling; Encounter for immunization; Other specified health status 06/13/2025 Travel 06/12/[address] [address] Emilia Hickman MD chart prep 06/06/2025 Population Health Risk Score [facility] () [address] [phone] Provider, Population Health Generic 06/05/2025 Patient Outreach [address] [address] Emilia Hickman MD Pre-visit Planning (Pre-visit planning - LVM ) 05/23/2025 2:30 PM EDT Clinical Support [address] [address] Thuy Tipton RN Encounter for immunization 05/23/2025 Travel 05/14/[address] [address] Valery Jett CNM Pap results 05/08/2025 Results Follow-Up [address] [address] Valery Jett CNM Pap Smear 05/01/2025 3:30 PM EDT Procedure Visit [address] [address] Valery Jett CNM Cervical cancer screening (Primary Dx); Folliculitis 05/01/2025 Travel 04/30/[address] [address] Emilia Hickman MD Chart Prep 04/27/[address] [address] Emilia Hickman MD canceled appt 05/02/25 04/25/2025 Patient Outreach [address] [address] Emilia Hickman MD Pre-visit Planning (Pre-visit planning - unable to leave a message, voicemail is not set up. ) 04/20/2025 11:30 AM EDT Clinical Support [address] [address] Thuy Tipton RN Encounter for immunization 04/20/2025 Travel from Last 3 Months Immunizations Immunization [...] Description 09/12/2025 11:00 AM EST Clinical Support [facility] [address] [place] [address] Palak Roche, RN [address] [place] [address] Health Maintenance Due Date Last Done Comments SDOH Screening 1990 HPV Vaccines (1 - 3-dose series) 2003 DTaP/Tdap/Td Vaccines (1 - Tdap) 2007 COVID-19 Vaccine ( - 2023-2 5 season) 2025 Influenza Vaccine [...] older (1 - 1-dose 75+ series) 2063 Hepatitis C Screening Completed 04/09/2025 Hepatitis B Vaccines Completed 05/23/2025, 04/20/2025 HIV Screening Completed 06/22/2025, 04/09/2025 HIB Vaccines Aged Out No longer eligi [...] PM EDT On pre-exposure prophylaxis for HIV HIV 1 RNA, QUANTITATIVE REAL TIME PCR Routine 06/22/2025 11:54 AM EDT PAP SMEAR Routine 05/01/2025 3:45 PM EDT Cervical cancer screening HPV DNA, LOW/HIGH RISK Routine 05/01/2025 3:45 PM EDT POCT , URINE Routine 05/01/2025 3:44 PM EDT Cervical cancer screening HEPATITIS C AB W/REFL TO HCV RNA, QN, PCR Routine 04/09/2025 10:46 AM EDT Screening examination for venereal disease HEMOGLOBIN A1C Routine 04/09/2025 10:46 AM EDT Elevated blood sugar LIPID PANEL, STANDARD Routine 04/09/2025 10:46 AM EDT Screening cholesterol level from Last 3 Months or Most Recently Relevant to Health Maintenance Results * POCT Urine (07/20/2025 2:40 PM EDT) Only the most recent of2 [...] TEST ENTER/EDIT OR DERABLES Final Result * HIV-1 RNA, Quantitative, Real-Time PCR (06/22/2025 11:54 AM EDT) Pathologist [facility] HIV RNA PCR Qn Copies NOT DETECTED NOT DETECTED copies/mL [facility] HIV RNA PCR Qn Log Copies NOT DETECTED NOT DETECTED [facility] Comment:Result Units: Log co pies/mLThis test was performed using Real-Time Polymerase ChainReaction.Reportable Range: 20 copies/mL to 10,000,000 copies/mL(1.30 log copies/mL to 7.00 log copies/mL).THIS TEST WAS PERFORMED AT:[facility] [place] [id number] RANDHAWA MD 06/22/2025 11:5 4 AM EDT 06/22/2025 1:27 PM EDT Emilia Hickman MD LAB BLOOD ORDERABLES Final Result [facility] [address] [place] [phone] * HPV DNA, Low/High Risk (05/01/2025 3:45 PM EDT) HPV High Risk Negative Negative [facility] HPV Genotype 16 Negative Negative [facility] HPV Genotype 18 Negative Negative [facility] Comment:HPV testing performe d at [facility] (CLIA#[id number]), [address] [place] [address].Testing for HPV was performed using the Siri [...] us Valery [facility] LAB BLOOD ORDERABLES Helga l Result Performing Organization Address City/[facility]/ZIP Co de Phone Number [facility] [address] [place] [address] [phone] * Pap Smear (05/01/2025 3:45 PM EDT) Swab Cervix uteri structure / Unknown 05/01/2025 3:45 PM EDT 05/02/2025 7:35 AM EDT Narrative [facility] - 05/08/2025 12:47 PM EDT ----- ------- Name: Ariana Guajardo Age/Sex: 34/F : 1990 Unit#: [id number] Attend Dr: VALERY JETT CNM Re05/01/25 Status: [facility]: ----- ------- SPEC : [id number] RECD: 05/02/25 STATUS: FAISAL XIE NUM: [id number] LENIN: 05/01/25-[address] [facility] [address]: VALERY JETT CNM ENTERED: 05/02/25 SP TYPE: Pap Smr OTHR DR: ORDERED: Pap Smear Interpretation Satisfactory for [...] and HPV testing will be performed at [facility] (CLIA #[id number]), [address] [place] [address]. Testing for HPV was performed using the Siri [employer] Fit0 system. The presence of HPV in the [...] detected. All professional services are performed by [facility] ([address] [place] [address], [place] [address]; ; CLIA #[id number]). The PAP Test is a screening procedure with the inherent possibility of both false negative and false positive results. Results should be interpreted in the context of historic and current clinical findings. Reliability of the PAP Test is enhanced by performing the test on a regular repetitive basis. ----- ------- Signed (signature on file) RODRIGO Rm (ASC) 05/08/25 1247 ----- ------- END OF REPORT us Valery Jett [facility] CYTOLOGY ORDERABLES F inal Result [facility] [address] [place] [phone] * Hepatitis C Antibody with Reflex to HCV, RNA, Quantitative, Real-Time PCR (04/09/2025 10:46 AM EDT) Hepatitis C Antibody Nonreactive Nonreactive [facility] Comment:Antibodies to HCV no t detected; does not exclude early acuteHCV infection. Blood Venous blood specimen / Unknown 04/09/2025 10:46 AM EDT 04/09/2025 11:20 AM EDT Valery [facility] LAB BLOOD ORDERABLES Hegla l Result Performing Organization Address City/[facility]/ZIP Co de Phone Number [facility] [address] [place] [phone] * Hemoglobin A1c (04/09/2025 10:46 AM EDT) Pathologist [facility] Hemoglobin A1c 5.7 <6.0 % [facility] Comment:Hemoglobin A1C Refer ence Range Adults: 4.8 - 6.0 % Non diabetic: < 6.0 % Goal: < 7.0 %Additional Action Suggested: > 8.0 %Note: Hemoglobin A1c results are invalid for patients with abnormal amounts of HbF. Blood transfusions may impact the HbA1c concentration in the patient sample. Estimated Average Glucose 117 mg/dL [facility] Comment:eAG = Estimated ave rage glucose which is %A1C expressed asaverage glucose, using the formula of the F5K-AthbjoqAyragfw Glucose study (ADAG), Diabetes Care, Vol.31,#8,May. 2007 Blood Venous blood specimen / Unknown 04/09/2025 10:46 AM EDT 04/09/2025 11:20 AM EDT us Emilia Hickman MD LAB BLOOD ORDERABLES Final Result Performing Organization Address [facility]/ZIP Co de Phone Number [facility] [address] [place] [phone] * (ABNORMAL) Lipid Panel, Standard (04/09/2025 10:46 AM EDT) Triglycerides 69 <150 mg/dL [facility] Comment:Desirable Triglyceri de: less than 150 mg/dLBorderline High Triglyceride 150-199 mg/dLHigh Triglyceride: 200-499 mg/dLVery High Triglyceride: greater than or equal to 5OO mg/dL Cholesterol 202(H) <200 mg/dL [facility] Comment:Desirable Cholestero l: less than 200 mg/dLBorderline High Cholesterol: 200-239 mg/dLHigh Cholesterol: greater than 239 mg/dL LDL Cholesterol Calculated 146(H) <100 mg/dL [facility] Comment:Desirable LDL: less than 100 mg/dLNear Optimal/Above Optimal LDL: 110- 129 mg/dLBorderline High LDL: 130-159 mg/dLHigh LDL: 160-189 mg/dLVery High LDL: greater than or equal to 190 mg/dL HDL Cholesterol 43 >40 mg/dL [facility] Comment:Desirable HDL: great er than 40 mg/dL Note: This HDL assay may give artificially low results in patients with liver disease. Blood Venous blood specimen / Unknown 04/09/2025 10:46 AM EDT 04/09/2025 11:25 AM EDT Emilia Hickman MD LAB BLOOD ORDERABLES Final Result [facility] [address] [place] [phone] from Last 3 Months or Most Recently Relevant to Health Maintenance Insurance [facility] C3 Care Teams Facsimile Machine Operator Relationship Specialty Start Date End Date Emilia Hickman MD [address] [place] [phone] PCP - General Family Medicine 03/28/25
--- OUTSIDE RECORDS SUMMARY | 2025-07-20 16:55 | XMS_ITS | Encounter Summary ---
Author Organization [employer] Address [address] [facility] [address] [place] [address] Care Team Providers Care Multimedia Technician Name Role Phone Emilia Hickman MD Primary Care Provider [phone]- [phone] Reason for Visit * Reason Onset Date Comments Referral 07/20/2025 Encounter Details Date Type Department Care Team (Late st Contact Info) Description 07/20/2025 Telephone [facility] [address] [place], [place] [phone] Emilia Hickman MD [address] [place], [place] [phone] Referral Social History Tobacco Use Types Packs/Day Years [...] t he electric, gas, oil or water [employer] threatened to shut off services in your [...] PM EDT documented as of this encounter Miscellaneous Notes * Telephone Encounter - Ousmane Weller - 07/20/2025 2:42 PM EDT Patient walked in requesting a referral for a psychologist. documented in this encounter Plan of Treatment Upcoming Encounters Date Type Department Care Team (Late st Contact Info) Description 09/12/2025 11:00 AM EST Clinical Support [facility] [address] [place] [address] Palak Roche, RN [address] [place] [address] documented as of this encounter Visit Diagnoses Not on filedocumented in this encounter Additional Health Concerns Assessment Noted Time PHQ-9 Depression Total Score: 0 04/09/20 9:39 AM EDT documented as of this encounter Care Teams Multimedia Technician Relationship Specialty Start Date End Date Emilia Hickman MD [address] [place] [address] PCP - General Family Medicine 03/28/25 documented as of this encounter
--- OUTSIDE RECORDS SUMMARY | 2025-07-20 16:55 | XMS_ITS | Encounter Summary ---
Author Organization [employer] Address [address] [facility] [address] [place] [address] Care Team Providers Care Director [facility] Name Role Phone Emilia Hickman MD Primary Care Provider +1- [phone] Encounter Details Date Type Department Care Team (Latest Contact Info) Description 07/20/2025 Travel Social History Tobacco Use Types Packs/Day [...] Description 09/12/2025 11:00 AM EST Clinical Support [facility] [address] [place] [address] Palak Roche, RN [address] [place] [address] documented as of this encounter Visit Diagnoses Not on filedocumented in this encounter Additional Health Concerns Assessment Noted Time PHQ-9 Depression Total Score: 0 04/09/20 9:39 AM EDT documented as of this encounter Care Teams Director [facility] Relationship Specialty Start Date End Date Emilia Hickman MD [address] [place] [address] PCP - General Family Medicine 03/28/25 documented as of this encounter
[2025-07-21 09:17] LABS: Syphilis Screen Nonreactive (Nonreactive)
[2025-07-21 14:14] LABS: HIV RNA PCR Qn Copies NOT DETECTED copies/mL (NOT DETECTED); HIV RNA PCR Qn Log Copies NOT DETECTED (NOT DETECTED)
== END 2025-07-20 14:23 | disposition home or self-care (01) ==
LOC: HO.HHCL 14:22
PROVIDERS: PCP Family Medicine; Visit Provider Family Medicine
DX: Z11.4 Encounter for screening for human immunodeficiency virus [HIV] (principal); Z11.3 Encounter for screening for infections with a predominantly sexual mode of transmission; Z79.899 Other long term (current) drug therapy
CPT/HCPCS: 36415; 86780; 87536